=== PATIENT | female | born 1960 | race Caucasian/White ===

== ENCOUNTER 2020-08-03 07:47 | Day surgery (SDC) | payer BC ==
[2020-08-03] MEDS: Polymyxin B/Trimethoprim 10 ML Bottle EYELF SCH ×4 (07:54→09:49)
[2020-08-03] MEDS: Brimonidine 0.2% Ophth Soln 5 ML Bottle EYELF SCH ×4 (07:59→09:49)
[2020-08-03] MEDS: Brimonidine 0.2% Ophth Soln 5 ML Bottle EYERT SCH ×2 (08:00→10:20)
[2020-08-03] MEDS: Phenylephrine 2.5% Ophth Soln 15 ML Bot EYELF SCH ×4 (08:04→09:08)
[2020-08-03] MEDS: Phenylephrine 2.5% Ophth Soln 15 ML Bot EYERT SCH ×4 (08:05→09:26)
--- NOTE | 2020-08-03 08:06 | PCM.PREANE ---
Preanesthetic Assessment - Procedure Proposed Procedure: Left Cataract and Right Yag - Anesthesia/Transfusion/Family Hx Anesthesia History: Prior Anesthesia Without Reaction Family History of Anesthesia Reaction: No Transfusion History: No Prior Transfusion(s) Intubation History: Unknown - Review of Systems General: No Symptoms Pulmonary: No Symptoms (Covid: + in April. (no hospitalization)) Cardiovascular: No Symptoms (Elevated cholesterol, HTN), Lightheadedness (With Covid) Gastrointestinal: No Symptoms Neurological: No Symptoms (Memory is worse since COVID, and unsteadiness with gait), Headache, Numbness (Bilateral hands and Bilateral feet.) Other: Reports: None (Kidney Disease), Easy Bruising, Diabetes (IDDM= BS = 113 @ 0645), Sinus Problem (Seasonal Allergies) - Physical Assessment NPO Status Date: 08/02/20 NPO Status Time: 21:00 Vital Signs: HR: 63 Sat: 98% Temp: 97.1 Resp: 16 B/P: 154/71 Height: 1.57 m Weight: 108.862 kg ASA Class: 2 Mental Status: Alert & Oriented x3 Airway Class: Mallampati = 2 Dentition: Reports: Normal Dentition, Caries Thyro-Mental Finger Breadths: 3 Mouth Opening Finger Breadths: 3 ROM/Head Extension: Full Lungs: Clear to Auscultation, Normal Respiratory Effort Cardiovascular: Regular Rate, Regular Rhythm, No Murmurs - Allergies Allergies/Adverse Reactions: Allergies Allergy/AdvReac Type Severity Reaction Status Date / Time No Known Allergies Allergy Verified 08/02/20 14:14 - Anesthesia Plan Pre-Op Medication Ordered: None - Acknowledgements Anesthesia Type Planned: MAC Pt an Appropriate Candidate for the Planned Anesthesia: Yes Alternatives and Risks of Anesthesia Discussed w Pt/Guardian: Yes Pt/Guardian Understands and Agrees with Anesthesia Plan: Yes PreAnesthesia Questionnaire HEENT History: Reports: Cataract, Impaired Vision Cardiovascular History: Reports: High Cholesterol, Hypertension Respiratory History: Reports: None Gastrointestinal History: Reports: None Genitourinary History: Reports: Chronic Renal Insuffiency, Urinary Incontinence, UTI, Recurrent BET TAKER History: Reports: Musculoskeletal History: Reports: Arthritis Neurological History: Reports: Concussion, Headaches, Chronic Psychiatric History: Reports: Depression Endocrine/Metabolic History: Reports: Diabetes, Type II, Obesity/BMI 30+ Hematologic History: Reports: None Immunologic History: Reports: None Oncologic (Cancer) History: Reports: None Dermatologic History: Reports: None - Infectious Disease History Infectious Disease History: Reports: None - Past Surgical History HEENT Surgical History: Reports: Cataract Surgery, Eye Surgery - HOME MEDS Home Medications: Home Meds lisinopriL [Lisinopril] 20 mg PO DAILY #30 tablet 07/18/19 [Rx] metFORMIN [Glucophage XR] 500 mg PO BIDMEALS #60 tab.er 07/18/19 [Rx] - CURRENT (IN HOUSE) MEDS Current Meds: Current Medications Brimonidine Tartrate (Alphagan 0.2% Ophth Soln) 0 ml EYELF ASDIRECTED MELYSSA Stop: 08/03/20 18:00 Last Admin: 08/03/20 07:59 Dose: 1 drop Documented by: Brimonidine Tartrate (Alphagan 0.2% Ophth Soln) 0 ml EYERT ASDIRECTED MELYSSA Stop: 08/03/20 18:00 Cefuroxime Sodium (Zinacef) 0 mg EYELF ASDIRECTED MELYSSA Stop: 08/03/20 18:00 Lidocaine HCl (Xylocaine-Mpf 1%) 0 ml INJECT ASDIRECTED MELYSSA Stop: 08/03/20 18:00 Phenylephrine HCl (Asim-Synephrine 2.5% Ophth Soln) 0 ml EYELF ASDIRECTED MELYSSA Stop: 08/03/20 18:00 Phenylephrine HCl (Asim-Synephrine 2.5% Ophth Soln) 0 ml EYERT ASDIRECTED MELYSSA Stop: 08/03/20 18:00 Pilocarpine HCl (Pilocar 4% Ophth Soln) 0 ml EYELF ASDIRECTED MELYSSA Stop: 08/03/20 18:00 Polymyxin/Trimethoprim Sulfate (Polytrim Ophth Soln) 0 ml EYELF ASDIRECTED MELYSSA Stop: 08/03/20 18:00 Last Admin: 08/03/20 07:54 Dose: 1 drop Documented by: Tetracaine HCl (Tetracaine 0.5% Steri-Unit Bianca) 0 ml EYEBOTH ASDIRECTED MELYSSA Stop: 08/03/20 18:00 Tropicamide (Mydriacyl 1% Ophth Soln) 0 ml EYELF ASDIRECTED MELYSSA Stop: 08/03/20 18:00 Tropicamide (Mydriacyl 1% Ophth Soln) 0 ml EYERT ASDIRECTED MELYSSA Stop: 08/03/20 18:00
[2020-08-03] MEDS: Tropicamide 1% Ophth Soln 15 ML Bottle EYELF SCH ×4 (08:10→09:12)
[2020-08-03] MEDS: Tropicamide 1% Ophth Soln 15 ML Bottle EYERT SCH ×2 (08:11→08:21)
[2020-08-03] MEDS: Lidocaine 1% PF 2 ML SDV INJECT SCH ×2 (09:11→09:37)
[2020-08-03] MEDS: Tetracaine HCl/PF 0.5% 4 ML Bottle EYEBOTH SCH ×5 (09:11→09:38)
[2020-08-03] MEDS: Cefuroxime 10 MG/ML SYRINGE EYELF SCH ×2 (09:12→09:48)
[2020-08-03] MEDS: Pilocarpine 4% Ophth Soln 15 ML Bot EYELF SCH ×2 (09:12→09:49)
--- NOTE | 2020-08-03 09:51 | PCM48HPAN ---
Post Anesthesia Note - EVALUATION WITHIN 48HRS OF ANESTHETIC Vital Signs in Normal Range: Yes Patient Participated in Evaluation: Yes Respiratory Function Stable: Yes Airway Patent: Yes Cardiovascular Function Stable: Yes Hydration Status Stable: Yes Pain Control Satisfactory: Yes Nausea and Vomiting Control Satisfactory: Yes Mental Status Recovered: Yes Vital Signs: Last Vital Signs Temp 36.2 C 08/03/20 07:45 Pulse 63 08/03/20 07:45 Resp 16 08/03/20 07:45 BP 154/71 H 08/03/20 07:45 Pulse Ox 98 08/03/20 07:45
== END 2020-08-03 10:20 | disposition home or self-care (01) ==
LOC: JD.SDS 07:47
PROVIDERS: ATTEND Ophthalmology
DX: E11.36 Type 2 diabetes mellitus with diabetic cataract (principal); H25.89 Other age-related cataract; H26.491 Other secondary cataract, right eye; H35.373 Puckering of macula, bilateral; H31.093 Other chorioretinal scars, bilateral; E78.00 Pure hypercholesterolemia, unspecified; I10 Essential (primary) hypertension; Z98.890 Other specified postprocedural states; Z79.899 Other long term (current) drug therapy; Z79.4 Long term (current) use of insulin; Z96.1 Presence of intraocular lens
CPT/HCPCS: J0697; J2001

== ENCOUNTER 2025-02-12 13:17 | Emergency (ER) | payer BC ==
[2025-02-12] MEDS: Ketorolac 60 MG/2 ML SDV IM ONE (14:14)
[2025-02-12] MEDS: oxyCODONE 5 MG Tab PO ONE (14:14)
== END 2025-02-12 16:57 | disposition home or self-care (01) ==
LOC: JD.ED 13:17
DX: M25.552 Pain in left hip (principal); E78.00 Pure hypercholesterolemia, unspecified; I12.9 Hypertensive chronic kidney disease with stage 1 through stage 4 chronic kidney disease, or unspecified chronic kidney disease; N18.9 Chronic kidney disease, unspecified; E11.22 Type 2 diabetes mellitus with diabetic chronic kidney disease; Z79.899 Other long term (current) drug therapy; Z79.84 Long term (current) use of oral hypoglycemic drugs
CPT/HCPCS: 73502; 96372; 99283; A9270; J1885